=== PATIENT | female | born 1975 | race Caucasian/White ===

== ENCOUNTER 2017-12-05 20:46 | Inpatient (IN) | payer MEDICARE, MEDICAID ==
[~2017-12-05] VITALS: Ht 162.6 cm; Wt 75.5 kg
[2017-12-05] MEDS ORDERED: PANTOPRAZOLE 40 MG/10 ML VIAL IV ONE (21:00)
[2017-12-05] MEDS ORDERED: PHYTONADIONE (VIT K)10 MG/ML 1ML VIAL SUBCUT ONE (21:15)
[2017-12-05 21:31] LABS: Basophils # (auto) 0.1 uL; Basophils % (auto) 0.9 % (0.0-2.0); Eosinophils # (auto) 0.2 uL; Monocytes # (auto) 0.4 uL; Neutrophils # (auto) 4.8 uL
[2017-12-05 21:34] LABS: Eosinophils % (auto) 2.3 % (0.0-7.0); Lymphocytes % (auto) 33.3 % (10.0-50.0); Monocytes % (auto) 4.7 % (0.0-12.0); Neutrophils % (auto) 58.8 % (37.0-80.0); White Blood Cell 8.2 10^3/uL (4.4-10.8)
[2017-12-05 21:35] LABS: Hematocrit 12.1 % (36.0-46.0); Lymphocytes # (auto) 2.7 uL; Nucleated Red Blood Cells % 0.3 %; Red Blood Cells 1.31 10^6/uL (4.0-5.20)
[2017-12-05 21:36] LABS: Mean Corpuscular Hemoglobin 31.1 pg (28.0-32.0); Mean Corpuscular Hgb Conc. 33.4 g/dL (32.0-36.0); Platelet Count (auto) 115 10^3/uL (140-450); Red Cell Distribution Width 15.3 % (11.8-14.3)
[2017-12-05 21:37] LABS: Hemoglobin 4.1 g/dL (12.2-16.2)
[2017-12-05 21:40] LABS: Albumin 1.3 g/dL (3.4-5.0); BUN/Creatinine Ratio 7.1; Bilirubin, Total 0.3 mg/dL (0.2-1.0); Calcium 6.1 mg/dL (8.5-10.1); Total Protein 3.4 g/dL (6.4-8.2)
[2017-12-05] MEDS ORDERED: PANTOPRAZOLE 80 MG in SODIUM CHL 0.9% 60 ML IV ONE (22:00)
[2017-12-05 22:09] LABS: Potassium 5.8 mmol/L (3.5-5.1)
[2017-12-05] MEDS ORDERED: MEPERIDINE HCL (50 MG/ML) 1 ML VIAL IV ONE (22:15)
[2017-12-05 22:55] VITALS: BP 80/50
[2017-12-05 23:11] VITALS: BP 81/45
[2017-12-05 23:19] VITALS: BP 78/44
[2017-12-05] MEDS ORDERED: FUROSEMIDE 20 MG/2 ML VIAL ONE (23:32)
[2017-12-05 23:40] VITALS: BP 79/47
[2017-12-05] MEDS ORDERED: FUROSEMIDE 20 MG/2 ML VIAL IV ONE (23:45)
[2017-12-05 23:55] VITALS: BP 94/48
[2017-12-06] VITALS (56 sets, daily range): BP systolic 53–169; BP diastolic 32–94
[2017-12-06] MEDS ORDERED: NOREPINEPHRINE 8 MG/250ML KIT 250 ML IV ONE (00:12)
[2017-12-06] MEDS: NOREPINEPHRINE 8 MG/250ML KIT 250 ML IV SCH ×2 (00:15→20:37)
[2017-12-06] MEDS ORDERED: OCTREOTIDE ACETATE 100 MCG/ML VL ONE (00:27)
[2017-12-06] MEDS ORDERED: OCTREOTIDE ACETATE 500 MCG/ML VL ONE (00:30)
[2017-12-06] MEDS ORDERED: PHYTONADIONE (VIT K)10 MG/ML 1ML VIAL SUBCUT ONE (00:30)
[2017-12-06] MEDS ORDERED: OCTREOTIDE ACETATE 100 MCG in SODIUM CHL 0.9% 50 ML IV ONE (00:30)
[2017-12-06] MEDS: OCTREOTIDE ACETATE 500 MCG in SODIUM CHL 0.9% 99 ML IV SCH ×2 (00:30→10:32)
[2017-12-06] MEDS ORDERED: CALCIUM GLUC 4.65meq/50ml D5AE 50 ML IV ONE ×3 (01:00→03:15)
[2017-12-06] MEDS ORDERED: CALCIUM CHL 100MG/ML 1,000 MG in D5W 5% 100 ML IV ONE (01:00)
[2017-12-06] MEDS ORDERED: SODIUM BICARBONATE 8.4 % INJ 50ML VIAL IV ONE ×2 (01:00→03:15)
[2017-12-06] MEDS ORDERED: ONDANSETRON HCL 4 MG/2 ML VIAL IV ONE (01:15)
[2017-12-06] MEDS ORDERED: MEPERIDINE HCL (50 MG/ML) 1 ML VIAL IV ONE (01:15)
[2017-12-06 01:16] LABS: INR 1.27 (0.9-1.15); Partial Thromboplastin Time 31.5 sec (23.78-33.04); Prothrombin Time 13.4 sec (9.27-12.13)
[2017-12-06] MEDS: SODIUM CHLORIDE 0.9% 1,000 ML IV SCH ×2 (02:15→18:55)
[2017-12-06] MEDS ORDERED: MORPHINE SULF INJ 2 MG/ML SYRINGE 1ML IV PRN (02:15)
[2017-12-06] MEDS ORDERED: NITROGLYCERIN 0.4 MG SL TAB SL PRN (02:15)
[2017-12-06] MEDS: PANTOPRAZOLE 80 MG in SODIUM CHL 0.9% 60 ML IV SCH ×3 (02:15→22:54)
[2017-12-06] MEDS ORDERED: SODIUM POLYSTYRENE SULF 15GM/60ML SUSP PO ONE (03:15)
[2017-12-06] MEDS ORDERED: DEXTROSE (50%) 50ML SYRG IV ONE (03:15)
[2017-12-06] MEDS ORDERED: FUROSEMIDE 40 MG/4 ML VIAL IV ONE (03:15)
[2017-12-06] MEDS ORDERED: InsuLIN REG 1unit/0.01ml Soln (100units/ml) IV ONE (03:15)
[2017-12-06] MEDS ORDERED: FUROSEMIDE 40 MG/4 ML VIAL ONE (03:49)
[2017-12-06 04:22] LABS: Urine Bacteria NONE SEEN /hpf (None Seen); Urine Blood TRACE /uL (Negative); Urine Specific Gravity 1.008 (1.001-1.035); Urine WBC 1 /hpf (0 - 5)
[2017-12-06 04:35] LABS: Hematocrit 19.6 % (36.0-46.0)
[2017-12-06 04:37] LABS: Hemoglobin 6.7 g/dL (12.2-16.2)
[2017-12-06] MEDS ORDERED: ETOMIDATE (2MG/ML) 20ML VIAL IV ONE ×3 (04:45→06:30)
[2017-12-06] MEDS ORDERED: SUCCINYLCHOLINE CHLORIDE 20 MG/ML 10ML VIAL IV ONE ×3 (04:45→06:30)
[2017-12-06] MEDS: VASOPRESSIN 50 UNITS in D5W 5% 247.5 ML IV SCH (04:45)
[2017-12-06] MEDS ORDERED: VASOPRESSIN 20 UNIT/ML ONE ×3 (04:50→05:08)
[2017-12-06] MEDS: MIDAZOLAM DRIP 50 mg/50mL 50 ML IV SCH ×2 (05:00→22:17)
[2017-12-06] MEDS ORDERED: MIDAZOLAM DRIP 50 mg/50mL 50 ML IV ONE (05:01)
[2017-12-06 05:05] LABS: INR 1.33 (0.9-1.15); Partial Thromboplastin Time 27.5 sec (23.78-33.04)
[2017-12-06] MEDS ORDERED: PHENYLEPHRINE HCL 10 MG/ML VL ONE (05:42)
[2017-12-06] MEDS: ACCU-CHEK COMFORT CURVE STRIP VI SCH ×3 (06:00→18:50)
[2017-12-06] MEDS: InsuLIN REG 1unit/0.01ml Soln (100units/ml) SC SCH ×3 (06:00→18:30)
[2017-12-06] MEDS ORDERED: MIDAZOLAM HCL 5 MG/ML-1ML VIAL ONE ×2 (06:23→13:48)
[2017-12-06] MEDS ORDERED: SODIUM CHLORIDE LOCK 0 ML ONE (06:23)
[2017-12-06] MEDS ORDERED: FLUMAZENIL 0.1 MG/ML INJ 10ML MDV IV ONE (06:23)
[2017-12-06] MEDS ORDERED: LIDOCAINE VISCOUS 2% 15ML UD ONE (06:23)
[2017-12-06] MEDS ORDERED: NALOXONE HCL 0.4 MG/ML VIAL ONE (06:23)
[2017-12-06] MEDS ORDERED: fentaNYL CITRATE 100 MCG/2 ML VL ONE ×2 (06:24→13:49)
[2017-12-06] MEDS ORDERED: diphenhdrAMINE HCL 50 MG/1 ML VL ONE ×2 (06:27→13:49)
[2017-12-06] MEDS: PHENYLEPHRINE INJ 20 MG in D5W 5% 250 ML IV SCH ×3 (06:30→23:10)
[2017-12-06] MEDS ORDERED: fentaNYL CITRATE 100 MCG/2 ML VL IV ONE (06:40)
[2017-12-06] MEDS ORDERED: PROPOFOL 0 ML IV ONE (06:42)
[2017-12-06] MEDS: METOCLOPRAMIDE HCL 5MG/ml INJ 2ml VIAL IV SCH ×3 (06:48→22:00)
[2017-12-06] MEDS ORDERED: PROPOFOL 10 MG/ML 20 ML IV ONE (07:00)
[2017-12-06] MEDS ORDERED: fentaNYL Drip 2500mCg/250mlNS 250 ML IV ONE (07:57)
[2017-12-06] MEDS: fentaNYL Drip 2500mCg/250mlNS 250 ML IV SCH (08:00)
[2017-12-06 09:29] LABS: Basophils # (auto) 0 uL; Basophils % (auto) 0.2 % (0.0-2.0); Eosinophils # (auto) 0 uL; Eosinophils % (auto) 0.1 % (0.0-7.0); Monocytes # (auto) 1.4 uL; Platelet Count (auto) 56 10^3/uL (140-450); White Blood Cell 24.3 10^3/uL (4.4-10.8)
[2017-12-06 09:31] LABS: Hematocrit 45.5 % (36.0-46.0); Lymphocytes # (auto) 3.1 uL; Lymphocytes % (auto) 12.7 % (10.0-50.0); Mean Corpuscular Hemoglobin 29.4 pg (28.0-32.0); Mean Corpuscular Hgb Conc. 32.9 g/dL (32.0-36.0); Mean Corpuscular Volume 89.2 fL (80.0-100.0); Monocytes % (auto) 5.7 % (0.0-12.0); Neutrophils # (auto) 19.7 uL; Neutrophils % (auto) 81.3 % (37.0-80.0); Red Cell Distribution Width 14.1 % (11.8-14.3)
[2017-12-06 09:46] LABS: INR 1.31 (0.9-1.15); Partial Thromboplastin Time 29.4 sec (23.78-33.04); Prothrombin Time 13.8 sec (9.27-12.13)
[2017-12-06] MEDS ORDERED: ERYTHROMYCIN LACTOBIONATE 250 MG in SODIUM CHL 0.9% 100 ML IV ONE (10:30)
[2017-12-06] MEDS: DEXTROSE (50%) 50ML SYRG IV PRN (12:21)
[2017-12-06] MEDS ORDERED: DEXTROSE 10% 1,000 ML IV ONE (13:15)
[2017-12-06 13:17] LABS: Hemoglobin 13.4 g/dL (12.2-16.2)
[2017-12-06 13:18] LABS: Hematocrit 40.7 % (36.0-46.0)
[2017-12-06] MEDS ORDERED: EPINEPHrine HCL 1 MG/10 ML SYRG ONE (13:48)
[2017-12-06] MEDS ORDERED: SODIUM CHL 0.9% 1000 ML BAG XX ONE (18:15)
[2017-12-06] MEDS ORDERED: EPOETIN ALFA 3,000 UNIT/1 ML VIAL IV ONE (19:00)
[2017-12-06] MEDS ORDERED: EPOETIN ALFA 2,000 UNIT/1 ML VIAL IV ONE (19:00)
[2017-12-06 19:57] LABS: Basophils # (auto) 0.1 uL; Basophils % (auto) 0.7 % (0.0-2.0); Eosinophils # (auto) 0.2 uL; Eosinophils % (auto) 1.1 % (0.0-7.0); Hematocrit 36.8 % (36.0-46.0); Hemoglobin 12.5 g/dL (12.2-16.2); Lymphocytes # (auto) 4.4 uL; Lymphocytes % (auto) 23.2 % (10.0-50.0); Mean Corpuscular Hemoglobin 30.3 pg (28.0-32.0); Mean Corpuscular Hgb Conc. 33.9 g/dL (32.0-36.0); Mean Corpuscular Volume 89.5 fL (80.0-100.0); Monocytes # (auto) 1.3 uL; Neutrophils # (auto) 12.8 uL; Nucleated Red Blood Cells % 0.2 %; Platelet Count (auto) 75 10^3/uL (140-450); Red Blood Cells 4.11 10^6/uL (4.0-5.20); Red Cell Distribution Width 14.2 % (11.8-14.3); White Blood Cell 18.9 10^3/uL (4.4-10.8)
[2017-12-06 20:38] LABS: Albumin 1.3 g/dL (3.4-5.0); BUN/Creatinine Ratio 8.5; Bilirubin, Total 0.7 mg/dL (0.2-1.0); Calcium 6.2 mg/dL (8.5-10.1); Potassium 5.1 mmol/L (3.5-5.1); Total Protein 3.3 g/dL (6.4-8.2)
[2017-12-06] MEDS ORDERED: PHENYLEPHRINE IV 250 ML IV ONE (20:49)
[2017-12-07] VITALS (108 sets, daily range): BP systolic 72–142; BP diastolic 30–116
[2017-12-07] MEDS: SODIUM CHLORIDE 0.9% 1,000 ML IV SCH (00:33)
[2017-12-07] MEDS: diphenhdrAMINE HCL 50 MG/1 ML VL IV PRN ×3 (01:41→20:56)
[2017-12-07] MEDS: fentaNYL Drip 2500mCg/250mlNS 250 ML IV SCH (03:08)
[2017-12-07] MEDS: MIDAZOLAM DRIP 50 mg/50mL 50 ML IV SCH ×3 (03:09→20:55)
[2017-12-07 03:44] LABS: Basophils # (auto) 0 uL; Basophils % (auto) 0.3 % (0.0-2.0); Eosinophils # (auto) 0.4 uL; Eosinophils % (auto) 2.6 % (0.0-7.0); Hematocrit 27.4 % (36.0-46.0); Hemoglobin 9.3 g/dL (12.2-16.2); Lymphocytes % (auto) 19.7 % (10.0-50.0); Mean Corpuscular Hemoglobin 30.4 pg (28.0-32.0); Mean Corpuscular Hgb Conc. 34.1 g/dL (32.0-36.0); Mean Corpuscular Volume 89.2 fL (80.0-100.0); Monocytes # (auto) 1.1 uL; Monocytes % (auto) 7.5 % (0.0-12.0); Neutrophils # (auto) 10.6 uL; Neutrophils % (auto) 69.9 % (37.0-80.0); Nucleated Red Blood Cells % 0.1 %; Platelet Count (auto) 89 10^3/uL (140-450); Red Blood Cells 3.07 10^6/uL (4.0-5.20); Red Cell Distribution Width 14.2 % (11.8-14.3); White Blood Cell 15.2 10^3/uL (4.4-10.8)
[2017-12-07 03:59] LABS: Potassium 3.8 mmol/L (3.5-5.1)
[2017-12-07 04:04] LABS: Albumin 1.7 g/dL (3.4-5.0); Calcium 6.1 mg/dL (8.5-10.1)
[2017-12-07 04:19] LABS: Bilirubin, Total 0.7 mg/dL (0.2-1.0)
[2017-12-07 04:25] LABS: INR 1.07 (0.9-1.15); Prothrombin Time 11.4 sec (9.27-12.13)
[2017-12-07] MEDS: VASOPRESSIN 50 UNITS in D5W 5% 247.5 ML IV SCH (04:45)
[2017-12-07 05:25] LABS: BUN/Creatinine Ratio 6.6
[2017-12-07] MEDS: METOCLOPRAMIDE HCL 5MG/ml INJ 2ml VIAL IV SCH ×3 (05:41→22:00)
[2017-12-07] MEDS: InsuLIN REG 1unit/0.01ml Soln (100units/ml) SC SCH ×5 (06:00→23:44)
[2017-12-07] MEDS: ACCU-CHEK COMFORT CURVE STRIP VI SCH ×5 (06:05→23:44)
[2017-12-07] MEDS ORDERED: CLIN1CAP3 PO (06:18)
[2017-12-07] MEDS ORDERED: OXY5T PO (06:18)
[2017-12-07] MEDS ORDERED: GABA600T PO (06:18)
[2017-12-07] MEDS ORDERED: DIAZ5TAB3 PO (06:18)
[2017-12-07] MEDS: PHENYLEPHRINE INJ 20 MG in D5W 5% 250 ML IV SCH ×2 (07:30→15:50)
[2017-12-07] MEDS: PANTOPRAZOLE 80 MG in SODIUM CHL 0.9% 60 ML IV SCH ×2 (08:15→20:55)
[2017-12-07] MEDS ORDERED: GENTAMICIN SULF 80 MG/2 ML VIAL IV ONE (12:30)
[2017-12-07 13:21] LABS: Urine Bacteria FEW /hpf (None Seen); Urine Blood 2+ /uL (Negative); Urine Specific Gravity 1.003 (1.001-1.035); Urine WBC 18 /hpf (0 - 5)
[2017-12-07 22:18] LABS: Hemoglobin 8.3 g/dL (12.2-16.2)
[2017-12-07] MEDS: DEXTROSE (50%) 50ML SYRG IV PRN (23:45)
[2017-12-08] VITALS (114 sets, daily range): BP systolic 90–154; BP diastolic 45–98
[2017-12-08] MEDS: PHENYLEPHRINE INJ 20 MG in D5W 5% 250 ML IV SCH ×3 (00:10→16:50)
[2017-12-08] MEDS: SODIUM CHLORIDE 0.9% 1,000 ML IV SCH (01:34)
[2017-12-08] MEDS: PANTOPRAZOLE 80 MG in SODIUM CHL 0.9% 60 ML IV SCH ×3 (04:15→21:25)
[2017-12-08 04:29] LABS: Basophils # (auto) 0.1 uL; Basophils % (auto) 0.7 % (0.0-2.0); Eosinophils # (auto) 0.4 uL; Eosinophils % (auto) 5.1 % (0.0-7.0); Hematocrit 28.2 % (36.0-46.0); Hemoglobin 9.5 g/dL (12.2-16.2); Lymphocytes # (auto) 1.5 uL; Lymphocytes % (auto) 19.1 % (10.0-50.0); Mean Corpuscular Hgb Conc. 33.6 g/dL (32.0-36.0); Mean Corpuscular Volume 89.2 fL (80.0-100.0); Monocytes # (auto) 0.5 uL; Monocytes % (auto) 6.8 % (0.0-12.0); Neutrophils # (auto) 5.3 uL; Neutrophils % (auto) 68.3 % (37.0-80.0); Platelet Count (auto) 66 10^3/uL (140-450); Red Blood Cells 3.16 10^6/uL (4.0-5.20); Red Cell Distribution Width 13.7 % (11.8-14.3); White Blood Cell 7.8 10^3/uL (4.4-10.8)
[2017-12-08 04:43] LABS: Albumin 1.5 g/dL (3.4-5.0); Calcium 6.3 mg/dL (8.5-10.1)
[2017-12-08 04:45] LABS: Bilirubin, Total 0.6 mg/dL (0.2-1.0)
[2017-12-08] MEDS: VASOPRESSIN 50 UNITS in D5W 5% 247.5 ML IV SCH (04:45)
[2017-12-08 04:54] LABS: INR 1.08 (0.9-1.15); Partial Thromboplastin Time 30.7 sec (23.78-33.04); Prothrombin Time 11.5 sec (9.27-12.13)
[2017-12-08] MEDS: MIDAZOLAM DRIP 50 mg/50mL 50 ML IV SCH (04:58)
[2017-12-08] MEDS: METOCLOPRAMIDE HCL 5MG/ml INJ 2ml VIAL IV SCH ×2 (06:00→14:00)
[2017-12-08] MEDS: InsuLIN REG 1unit/0.01ml Soln (100units/ml) SC SCH ×3 (06:00→18:00)
[2017-12-08] MEDS: ACCU-CHEK COMFORT CURVE STRIP VI SCH ×3 (06:25→18:00)
[2017-12-08] MEDS: DEXTROSE (50%) 50ML SYRG IV PRN (06:25)
[2017-12-08] MEDS: NOREPINEPHRINE 8 MG/250ML KIT 250 ML IV SCH (06:26)
[2017-12-08] MEDS: fentaNYL Drip 2500mCg/250mlNS 250 ML IV SCH (08:24)
[2017-12-08] MEDS: SUCRALFATE 1 GM/10 ML ORAL SUSP PO SCH ×2 (17:00→22:00)
[2017-12-08] MEDS ORDERED: PPN PER PHARMACY 0 ML IV SCH (19:00)
[2017-12-08] MEDS ORDERED: CALCIUM GLUC 4.65meq/50ml D5AE 50 ML IV ONE (19:30)
[2017-12-08] MEDS ORDERED: AMINO ACID INFUSION IN D10W 1,000 ML IV ONE (20:00)
[2017-12-09] VITALS (90 sets, daily range): BP systolic 94–162; BP diastolic 45–94
[2017-12-09] MEDS: PHENYLEPHRINE INJ 20 MG in D5W 5% 250 ML IV SCH ×2 (01:10→09:30)
[2017-12-09 03:55] LABS: Basophils # (auto) 0 uL; Basophils % (auto) 0.5 % (0.0-2.0); Eosinophils # (auto) 0.4 uL; Eosinophils % (auto) 3.8 % (0.0-7.0); Hematocrit 29.1 % (36.0-46.0); Hemoglobin 9.8 g/dL (12.2-16.2); Lymphocytes # (auto) 1.1 uL; Lymphocytes % (auto) 11.3 % (10.0-50.0); Mean Corpuscular Hemoglobin 30.3 pg (28.0-32.0); Mean Corpuscular Hgb Conc. 33.7 g/dL (32.0-36.0); Mean Corpuscular Volume 89.7 fL (80.0-100.0); Monocytes # (auto) 0.5 uL; Monocytes % (auto) 4.8 % (0.0-12.0); Neutrophils # (auto) 8.1 uL; Neutrophils % (auto) 79.6 % (37.0-80.0); Platelet Count (auto) 72 10^3/uL (140-450); Red Blood Cells 3.25 10^6/uL (4.0-5.20); Red Cell Distribution Width 13.8 % (11.8-14.3); White Blood Cell 10.2 10^3/uL (4.4-10.8)
[2017-12-09 04:21] LABS: Albumin 1.6 g/dL (3.4-5.0); Bilirubin, Total 0.6 mg/dL (0.2-1.0); Calcium 6.8 mg/dL (8.5-10.1); Magnesium 2.2 mg/dL (1.6-2.6); Phosphorus 6.4 mg/dL (2.5-4.90); Potassium 4.2 mmol/L (3.5-5.1); Total Protein 4.3 g/dL (6.4-8.2)
[2017-12-09] MEDS: VASOPRESSIN 50 UNITS in D5W 5% 247.5 ML IV SCH (04:45)
[2017-12-09] MEDS: ACCU-CHEK COMFORT CURVE STRIP VI SCH ×4 (06:00→17:49)
[2017-12-09] MEDS ORDERED: EPOETIN ALFA 10,000 UNIT/1 ML VIAL IV SCH (06:00)
[2017-12-09] MEDS: InsuLIN REG 1unit/0.01ml Soln (100units/ml) SC SCH ×4 (06:00→17:49)
[2017-12-09] MEDS: NOREPINEPHRINE 8 MG/250ML KIT 250 ML IV SCH (06:30)
[2017-12-09] MEDS: SUCRALFATE 1 GM/10 ML ORAL SUSP PO SCH ×4 (07:00→22:00)
[2017-12-09] MEDS: PANTOPRAZOLE 80 MG in SODIUM CHL 0.9% 60 ML IV SCH (08:00)
[2017-12-09] MEDS: diphenhdrAMINE HCL 50 MG/1 ML VL IV PRN ×2 (14:31→22:30)
[2017-12-09] MEDS ORDERED: diphenhdrAMINE HCL 50 MG/1 ML VL IV ONE (15:15)
[2017-12-09] MEDS ORDERED: EPOETIN ALFA 10,000 UNIT/1 ML VIAL IV ONE (15:30)
[2017-12-09] MEDS ORDERED: PPN PER PHARMACY IV NR ×7 (20:00)
[2017-12-09] MEDS ORDERED: PANTOPRAZOLE 40 MG/10 ML VIAL IV SCH (22:00)
[2017-12-10] VITALS (20 sets, daily range): BP systolic 105–154; BP diastolic 49–80
[2017-12-10 03:46] LABS: Basophils # (auto) 0.1 uL; Basophils % (auto) 0.9 % (0.0-2.0); Eosinophils # (auto) 0.4 uL; Eosinophils % (auto) 4.2 % (0.0-7.0); Hematocrit 27.5 % (36.0-46.0); Hemoglobin 9.4 g/dL (12.2-16.2); Lymphocytes # (auto) 1.3 uL; Lymphocytes % (auto) 15.5 % (10.0-50.0); Mean Corpuscular Hemoglobin 30.6 pg (28.0-32.0); Mean Corpuscular Hgb Conc. 34.1 g/dL (32.0-36.0); Monocytes # (auto) 0.4 uL; Monocytes % (auto) 4.8 % (0.0-12.0); Neutrophils # (auto) 6.3 uL; Neutrophils % (auto) 74.6 % (37.0-80.0); Platelet Count (auto) 81 10^3/uL (140-450); Red Blood Cells 3.06 10^6/uL (4.0-5.20); White Blood Cell 8.5 10^3/uL (4.4-10.8)
[2017-12-10 04:46] LABS: BUN/Creatinine Ratio 5.1; Calcium 6.4 mg/dL (8.5-10.1); Potassium 4.1 mmol/L (3.5-5.1)
[2017-12-10] MEDS: ACCU-CHEK COMFORT CURVE STRIP VI SCH ×5 (06:00→23:21)
[2017-12-10] MEDS: InsuLIN REG 1unit/0.01ml Soln (100units/ml) SC SCH ×5 (06:00→23:21)
[2017-12-10] MEDS: SUCRALFATE 1 GM/10 ML ORAL SUSP PO SCH ×4 (06:40→21:02)
[2017-12-10] MEDS ORDERED: PANTOPRAZOLE 40 MG/10 ML VIAL IV SCH (10:00)
[2017-12-10] MEDS ORDERED: LINEZOLID 600MG/300ML 300 ML IV ONE (12:00)
[2017-12-10] MEDS ORDERED: DAPTOmycin 500 MG in SODIUM CHL 0.9% 50 ML IV SCH (13:00)
[2017-12-10] MEDS: PANTOPRAZOLE 40 MG TAB PO SCH (21:02)
[2017-12-10] MEDS: diphenhdrAMINE HCL 50 MG/1 ML VL IV PRN (21:02)
[2017-12-10] MEDS ORDERED: LINEZOLID 600MG/300ML 300 ML IV SCH (22:00)
[2017-12-11] VITALS (7 sets, daily range): BP systolic 136–156; BP diastolic 68–75
[2017-12-11 05:46] LABS: Basophils # (auto) 0.1 uL; Eosinophils # (auto) 0.4 uL; Eosinophils % (auto) 6.5 % (0.0-7.0); Hematocrit 27.7 % (36.0-46.0); Hemoglobin 9.5 g/dL (12.2-16.2); Lymphocytes # (auto) 1.4 uL; Lymphocytes % (auto) 22.1 % (10.0-50.0); Mean Corpuscular Hemoglobin 31.3 pg (28.0-32.0); Mean Corpuscular Hgb Conc. 34.4 g/dL (32.0-36.0); Mean Corpuscular Volume 91.2 fL (80.0-100.0); Monocytes # (auto) 0.4 uL; Monocytes % (auto) 7.2 % (0.0-12.0); Neutrophils # (auto) 3.9 uL; Neutrophils % (auto) 63.2 % (37.0-80.0); Nucleated Red Blood Cells % 0.1 %; Platelet Count (auto) 90 10^3/uL (140-450); Red Blood Cells 3.04 10^6/uL (4.0-5.20); White Blood Cell 6.1 10^3/uL (4.4-10.8)
[2017-12-11 05:57] LABS: BUN/Creatinine Ratio 4.3; Calcium 6.7 mg/dL (8.5-10.1); Potassium 4.5 mmol/L (3.5-5.1)
[2017-12-11] MEDS: InsuLIN REG 1unit/0.01ml Soln (100units/ml) SC SCH ×4 (06:00→23:25)
[2017-12-11] MEDS: ACCU-CHEK COMFORT CURVE STRIP VI SCH ×4 (06:14→23:25)
[2017-12-11] MEDS: SUCRALFATE 1 GM/10 ML ORAL SUSP PO SCH ×4 (06:17→22:17)
[2017-12-11] MEDS ORDERED: diphenhdrAMINE HCL 50 MG/1 ML VL IV ONE (07:45)
[2017-12-11] MEDS ORDERED: EPOETIN ALFA 10,000 UNIT/1 ML VIAL IV ONE (07:45)
[2017-12-11] MEDS: PANTOPRAZOLE 40 MG TAB PO SCH ×2 (11:18→22:18)
[2017-12-11] MEDS: LINEZOLID 600MG TABLET PO SCH ×2 (12:32→23:10)
[2017-12-11] MEDS: diphenhdrAMINE HCL 50 MG/1 ML VL IV PRN ×2 (14:10→19:49)
[2017-12-11] MEDS ORDERED: DIAZEPAM 5 MG TAB PO PRN (17:45)
[2017-12-11] MEDS ORDERED: oxyCODONE ER 10 MG TAB PO SCH (18:00)
[2017-12-11] MEDS ORDERED: GABAPENTIN 300 MG CAP PO SCH (22:00)
[2017-12-11] MEDS: GABAPENTIN 300 MG CAP PO SCH (22:18)
[2017-12-12] VITALS (40 sets, daily range): BP systolic 78–161; BP diastolic 31–106
[2017-12-12] MEDS: diphenhdrAMINE HCL 50 MG/1 ML VL IV PRN ×2 (01:42→08:06)
[2017-12-12] MEDS: oxyCODONE ER 10 MG TAB PO PRN ×2 (02:14→08:06)
[2017-12-12] MEDS: ACCU-CHEK COMFORT CURVE STRIP VI SCH ×3 (05:36→17:55)
[2017-12-12] MEDS: InsuLIN REG 1unit/0.01ml Soln (100units/ml) SC SCH ×3 (05:37→17:55)
[2017-12-12 05:54] LABS: Basophils # (auto) 0.1 uL; Basophils % (auto) 1.1 % (0.0-2.0); Eosinophils # (auto) 0.3 uL; Eosinophils % (auto) 6.3 % (0.0-7.0); Hematocrit 27.7 % (36.0-46.0); Hemoglobin 9.6 g/dL (12.2-16.2); Lymphocytes # (auto) 1.5 uL; Mean Corpuscular Hemoglobin 31.5 pg (28.0-32.0); Mean Corpuscular Hgb Conc. 34.7 g/dL (32.0-36.0); Mean Corpuscular Volume 90.7 fL (80.0-100.0); Monocytes # (auto) 0.5 uL; Monocytes % (auto) 9.1 % (0.0-12.0); Neutrophils # (auto) 2.9 uL; Neutrophils % (auto) 55.5 % (37.0-80.0); Nucleated Red Blood Cells % 0.1 %; Platelet Count (auto) 101 10^3/uL (140-450); Red Blood Cells 3.06 10^6/uL (4.0-5.20); Red Cell Distribution Width 13.9 % (11.8-14.3); White Blood Cell 5.3 10^3/uL (4.4-10.8)
[2017-12-12 06:06] LABS: Calcium 6.8 mg/dL (8.5-10.1); Potassium 4.1 mmol/L (3.5-5.1)
[2017-12-12] MEDS: SUCRALFATE 1 GM/10 ML ORAL SUSP PO SCH ×4 (06:46→22:00)
[2017-12-12 09:24] LABS: Basophils # (auto) 0.1 uL; Eosinophils # (auto) 0.4 uL; Hemoglobin 7.1 g/dL (12.2-16.2); Lymphocytes % (auto) 24.2 % (10.0-50.0)
[2017-12-12 09:25] LABS: Basophils % (auto) 1.1 % (0.0-2.0); Eosinophils % (auto) 5.2 % (0.0-7.0); Hematocrit 20.6 % (36.0-46.0); Lymphocytes # (auto) 1.7 uL; Mean Corpuscular Hemoglobin 31.3 pg (28.0-32.0); Mean Corpuscular Hgb Conc. 34.4 g/dL (32.0-36.0); Mean Corpuscular Volume 90.9 fL (80.0-100.0); Monocytes # (auto) 0.5 uL; Monocytes % (auto) 7.5 % (0.0-12.0); Neutrophils # (auto) 4.4 uL; Nucleated Red Blood Cells % 0.2 %; Platelet Count (auto) 153 10^3/uL (140-450); Red Blood Cells 2.27 10^6/uL (4.0-5.20); White Blood Cell 7.1 10^3/uL (4.4-10.8)
[2017-12-12] MEDS: LINEZOLID 600MG TABLET PO SCH ×2 (10:00→22:00)
[2017-12-12] MEDS: PANTOPRAZOLE 40 MG TAB PO SCH (10:00)
[2017-12-12] MEDS ORDERED: NOREPINEPHRINE 8 MG/250ML KIT 250 ML IV ONE (10:09)
[2017-12-12] MEDS: NOREPINEPHRINE 8 MG/250ML KIT 250 ML IV SCH (10:30)
[2017-12-12] MEDS ORDERED: METOCLOPRAMIDE HCL 5MG/ml INJ 2ml VIAL IV ONE (10:40)
[2017-12-12] MEDS ORDERED: METOCLOPRAMIDE HCL 5MG/ml INJ 2ml VIAL ONE (10:42)
[2017-12-12] MEDS ORDERED: PROPOFOL 10 MG/ML 20 ML IV ONE (12:41)
[2017-12-12] MEDS ORDERED: ePHEDrine SULFATE 50 MG/ML AMP ONE (12:41)
[2017-12-12] MEDS ORDERED: PHENYLEPHRINE HCL 10 MG/ML VL ONE (12:41)
[2017-12-12] MEDS ORDERED: fentaNYL CITRATE 100 MCG/2 ML VL ONE (12:41)
[2017-12-12] MEDS ORDERED: SUCCINYLCHOLINE CHLORIDE 20 MG/ML 10ML VIAL IV ONE (12:49)
[2017-12-12] MEDS ORDERED: ERYTHROMYCIN LACTOBIONATE 250 MG in SODIUM CHL 0.9% 100 ML IV ONE (13:15)
[2017-12-12] MEDS ORDERED: MIDAZOLAM DRIP 50 mg/50mL 50 ML IV ONE (13:34)
[2017-12-12] MEDS: MIDAZOLAM DRIP 50 mg/50mL 50 ML IV SCH (13:35)
[2017-12-12] MEDS ORDERED: GABAPENTIN 300 MG CAP PO PRN (15:00)
[2017-12-12] MEDS: ONDANSETRON HCL 4 MG/2 ML VIAL IV PRN (15:54)
[2017-12-12] MEDS ORDERED: EPINEPHrine HCL 1 MG/10 ML SYRG ONE (16:11)
[2017-12-12] MEDS ORDERED: SODIUM CHLORIDE LOCK 0 ML ONE (16:12)
[2017-12-12] MEDS ORDERED: PROPOFOL 100 ML IV ONE (16:13)
[2017-12-12 21:16] LABS: Basophils # (auto) 0 uL; Basophils % (auto) 0.3 % (0.0-2.0); Eosinophils # (auto) 0.1 uL; Eosinophils % (auto) 0.4 % (0.0-7.0); Hematocrit 28.5 % (36.0-46.0); Hemoglobin 9.6 g/dL (12.2-16.2); Lymphocytes # (auto) 1.5 uL; Lymphocytes % (auto) 10.3 % (10.0-50.0); Mean Corpuscular Hemoglobin 29.9 pg (28.0-32.0); Mean Corpuscular Hgb Conc. 33.5 g/dL (32.0-36.0); Mean Corpuscular Volume 89.2 fL (80.0-100.0); Monocytes # (auto) 0.7 uL; Neutrophils # (auto) 12.5 uL; Nucleated Red Blood Cells % 0.2 %; Platelet Count (auto) 127 10^3/uL (140-450); Red Cell Distribution Width 14.7 % (11.8-14.3); White Blood Cell 14.8 10^3/uL (4.4-10.8)
[2017-12-12] MEDS: GABAPENTIN 300 MG CAP PO SCH (22:00)
[2017-12-12] MEDS: PANTOPRAZOLE 40 MG/10 ML VIAL IV SCH (22:00)
[2017-12-13] VITALS (97 sets, daily range): BP systolic 88–148; BP diastolic 43–86
[2017-12-13] MEDS: InsuLIN REG 1unit/0.01ml Soln (100units/ml) SC SCH ×5 (01:30→23:22)
[2017-12-13] MEDS: ACCU-CHEK COMFORT CURVE STRIP VI SCH ×5 (01:30→23:22)
[2017-12-13 03:49] LABS: Basophils # (auto) 0.1 uL; Eosinophils # (auto) 0.2 uL; Eosinophils % (auto) 1.5 % (0.0-7.0); Monocytes # (auto) 0.5 uL; Nucleated Red Blood Cells % 0.1 %
[2017-12-13 03:51] LABS: Basophils % (auto) 0.8 % (0.0-2.0); Hematocrit 23.6 % (36.0-46.0); Hemoglobin 8.1 g/dL (12.2-16.2); Lymphocytes # (auto) 1.9 uL; Mean Corpuscular Hemoglobin 30.6 pg (28.0-32.0); Mean Corpuscular Hgb Conc. 34.4 g/dL (32.0-36.0); Monocytes % (auto) 4.7 % (0.0-12.0); Neutrophils # (auto) 8.3 uL; Platelet Count (auto) 110 10^3/uL (140-450); Red Blood Cells 2.65 10^6/uL (4.0-5.20); White Blood Cell 10.9 10^3/uL (4.4-10.8)
[2017-12-13 05:14] LABS: Anion Gap 10 (5-15); BUN/Creatinine Ratio 3.5; Blood Urea Nitrogen 16 mg/dL (7-18); Carbon Dioxide 21 mmol/L (21-32); Chloride 109 mmol/L (98-107); GFR African American 14 mL/min; GFR Non-African American 11 mL/min; Glucose 98 mg/dL (74-106); Potassium 5.4 mmol/L (3.5-5.1); Sodium 140 mmol/L (136-145)
[2017-12-13 05:17] LABS: Calcium 5.9 mg/dL (8.5-10.1)
[2017-12-13] MEDS ORDERED: CALCIUM GLUC 4.65meq/50ml D5AE 50 ML IV ONE (05:45)
[2017-12-13] MEDS: SUCRALFATE 1 GM/10 ML ORAL SUSP PO SCH ×4 (07:00→21:34)
[2017-12-13] MEDS ORDERED: SODIUM CHLORIDE LOCK 10 ML ONE (08:23)
[2017-12-13] MEDS ORDERED: LIDOCAINE VISCOUS 2% 15ML UD ONE (08:23)
[2017-12-13] MEDS ORDERED: diphenhdrAMINE HCL 50 MG/1 ML VL ONE (08:23)
[2017-12-13] MEDS ORDERED: MIDAZOLAM HCL 5 MG/ML-1ML VIAL ONE (08:23)
[2017-12-13] MEDS ORDERED: fentaNYL CITRATE 100 MCG/2 ML VL ONE (08:24)
[2017-12-13] MEDS ORDERED: SIMETHICONE 40 MG/0.6 ML ORAL DROP ONE (08:24)
[2017-12-13] MEDS: PANTOPRAZOLE 40 MG/10 ML VIAL IV SCH (09:36)
[2017-12-13] MEDS: NOREPINEPHRINE 8 MG/250ML KIT 250 ML IV SCH (10:30)
[2017-12-13] MEDS: LINEZOLID 600MG/300ML 300 ML IV SCH ×2 (11:22→23:22)
[2017-12-13] MEDS: PROPOFOL 100 ML IV SCH ×2 (11:36→16:12)
[2017-12-13 12:44] LABS: Hemoglobin 9.1 g/dL (12.2-16.2)
[2017-12-13 12:59] LABS: INR 1.15 (0.9-1.15); Partial Thromboplastin Time 28.9 sec (23.78-33.04); Prothrombin Time 12.2 sec (9.27-12.13)
[2017-12-13] MEDS: MIDAZOLAM DRIP 50 mg/50mL 50 ML IV SCH ×2 (13:01→18:27)
[2017-12-13 13:02] LABS: Albumin 1.3 g/dL (3.4-5.0); BUN/Creatinine Ratio 3.5; Bilirubin, Total 0.3 mg/dL (0.2-1.0); Calcium 6.5 mg/dL (8.5-10.1); Potassium 4.8 mmol/L (3.5-5.1); Total Protein 3.9 g/dL (6.4-8.2)
[2017-12-13 14:28] LABS: Fibrinogen 207.6 mg/dL (177-375)
[2017-12-13] MEDS: PANTOPRAZOLE 80 MG in SODIUM CHL 0.9% 60 ML IV SCH ×2 (16:11→23:22)
[2017-12-13] MEDS: GABAPENTIN 300 MG CAP PO SCH (21:34)
[2017-12-13] MEDS ORDERED: LINEZOLID 600MG/300ML 300 ML IV SCH (22:00)
[2017-12-14] VITALS (100 sets, daily range): BP systolic 99–158; BP diastolic 50–84
[2017-12-14] MEDS: SUCRALFATE 1 GM/10 ML ORAL SUSP PO SCH ×4 (05:00→21:07)
[2017-12-14] MEDS: ACCU-CHEK COMFORT CURVE STRIP VI SCH ×4 (05:22→23:13)
[2017-12-14] MEDS: InsuLIN REG 1unit/0.01ml Soln (100units/ml) SC SCH ×4 (05:22→23:13)
[2017-12-14 06:11] LABS: Potassium 4.1 mmol/L (3.5-5.1)
[2017-12-14 06:15] LABS: BUN/Creatinine Ratio 3.2; Calcium 6.5 mg/dL (8.5-10.1)
[2017-12-14 07:56] LABS: Basophils # (auto) 0.1 uL; Basophils % (auto) 1.1 % (0.0-2.0); Eosinophils # (auto) 0.6 uL; Hematocrit 26.2 % (36.0-46.0); Hemoglobin 8.8 g/dL (12.2-16.2); Lymphocytes # (auto) 1.4 uL; Lymphocytes % (auto) 17.9 % (10.0-50.0); Mean Corpuscular Hemoglobin 30.3 pg (28.0-32.0); Mean Corpuscular Hgb Conc. 33.5 g/dL (32.0-36.0); Mean Corpuscular Volume 90.4 fL (80.0-100.0); Monocytes # (auto) 0.4 uL; Monocytes % (auto) 5.4 % (0.0-12.0); Neutrophils # (auto) 5.1 uL; Neutrophils % (auto) 67.6 % (37.0-80.0); Nucleated Red Blood Cells % 0.1 %; Platelet Count (auto) 93 10^3/uL (140-450); Red Cell Distribution Width 14.7 % (11.8-14.3); White Blood Cell 7.6 10^3/uL (4.4-10.8)
[2017-12-14] MEDS: PROPOFOL 100 ML IV SCH ×2 (08:35→16:37)
[2017-12-14] MEDS: PANTOPRAZOLE 80 MG in SODIUM CHL 0.9% 60 ML IV SCH ×2 (09:43→20:00)
[2017-12-14] MEDS: NOREPINEPHRINE 8 MG/250ML KIT 250 ML IV SCH (10:30)
[2017-12-14] MEDS: LINEZOLID 600MG/300ML 300 ML IV SCH ×2 (10:48→23:13)
[2017-12-14] MEDS ORDERED: PROPOFOL 100 ML IV ONE (14:19)
[2017-12-14] MEDS: GABAPENTIN 300 MG CAP PO SCH (21:07)
[2017-12-15] VITALS (105 sets, daily range): BP systolic 82–154; BP diastolic 44–86
[2017-12-15] MEDS ORDERED: hydrALAZINE HCL 20 MG/ML VL IV PRN
[2017-12-15 04:19] LABS: Basophils # (auto) 0.1 uL; Basophils % (auto) 0.8 % (0.0-2.0); Eosinophils # (auto) 0.6 uL; Eosinophils % (auto) 6.7 % (0.0-7.0); Hematocrit 25.7 % (36.0-46.0); Hemoglobin 8.7 g/dL (12.2-16.2); Lymphocytes # (auto) 1.7 uL; Lymphocytes % (auto) 19.4 % (10.0-50.0); Mean Corpuscular Hemoglobin 30.7 pg (28.0-32.0); Mean Corpuscular Hgb Conc. 33.9 g/dL (32.0-36.0); Mean Corpuscular Volume 90.6 fL (80.0-100.0); Monocytes # (auto) 0.4 uL; Monocytes % (auto) 4.9 % (0.0-12.0); Neutrophils # (auto) 5.9 uL; Neutrophils % (auto) 68.2 % (37.0-80.0); Nucleated Red Blood Cells % 0.1 %; Platelet Count (auto) 98 10^3/uL (140-450); Red Blood Cells 2.84 10^6/uL (4.0-5.20); White Blood Cell 8.6 10^3/uL (4.4-10.8)
[2017-12-15 04:38] LABS: BUN/Creatinine Ratio 2.9; Calcium 6.6 mg/dL (8.5-10.1); Potassium 4.1 mmol/L (3.5-5.1)
[2017-12-15] MEDS: SUCRALFATE 1 GM/10 ML ORAL SUSP PO SCH ×4 (05:20→22:00)
[2017-12-15] MEDS: ACCU-CHEK COMFORT CURVE STRIP VI SCH ×4 (05:30→23:09)
[2017-12-15] MEDS: InsuLIN REG 1unit/0.01ml Soln (100units/ml) SC SCH ×4 (05:30→23:09)
[2017-12-15] MEDS: PANTOPRAZOLE 80 MG in SODIUM CHL 0.9% 60 ML IV SCH ×2 (06:09→15:10)
[2017-12-15] MEDS: LINEZOLID 600MG/300ML 300 ML IV SCH ×2 (10:25→23:08)
[2017-12-15] MEDS: NOREPINEPHRINE 8 MG/250ML KIT 250 ML IV SCH (10:30)
[2017-12-15] MEDS: PROPOFOL 100 ML IV SCH ×2 (10:38→14:07)
[2017-12-15] MEDS: GABAPENTIN 300 MG CAP PO SCH (22:00)
[2017-12-16] VITALS (106 sets, daily range): BP systolic 84–159; BP diastolic 49–76
[2017-12-16 02:40] LABS: Basophils # (auto) 0.1 uL; Basophils % (auto) 1.3 % (0.0-2.0); Eosinophils # (auto) 0.5 uL; Eosinophils % (auto) 7.6 % (0.0-7.0); Hematocrit 25.5 % (36.0-46.0); Hemoglobin 8.5 g/dL (12.2-16.2); Lymphocytes # (auto) 1.4 uL; Lymphocytes % (auto) 19.8 % (10.0-50.0); Mean Corpuscular Hemoglobin 30.4 pg (28.0-32.0); Mean Corpuscular Hgb Conc. 33.4 g/dL (32.0-36.0); Mean Corpuscular Volume 90.9 fL (80.0-100.0); Monocytes # (auto) 0.3 uL; Monocytes % (auto) 4.4 % (0.0-12.0); Neutrophils # (auto) 4.6 uL; Neutrophils % (auto) 66.9 % (37.0-80.0); Platelet Count (auto) 115 10^3/uL (140-450); Red Cell Distribution Width 14.8 % (11.8-14.3); White Blood Cell 6.9 10^3/uL (4.4-10.8)
[2017-12-16] MEDS: ACCU-CHEK COMFORT CURVE STRIP VI SCH ×2 (06:00→12:30)
[2017-12-16] MEDS ORDERED: EPOETIN ALFA 4,000 UNIT/ML VL IV SCH (06:00)
[2017-12-16] MEDS: InsuLIN REG 1unit/0.01ml Soln (100units/ml) SC SCH ×2 (06:00→12:45)
[2017-12-16] MEDS: PANTOPRAZOLE 80 MG in SODIUM CHL 0.9% 60 ML IV SCH ×2 (06:30→10:00)
[2017-12-16] MEDS: SUCRALFATE 1 GM/10 ML ORAL SUSP PO SCH ×4 (06:31→21:29)
[2017-12-16 08:07] LABS: BUN/Creatinine Ratio 3.2; Calcium 6.6 mg/dL (8.5-10.1); Potassium 4.4 mmol/L (3.5-5.1)
[2017-12-16] MEDS: NOREPINEPHRINE 8 MG/250ML KIT 250 ML IV SCH (10:30)
[2017-12-16] MEDS: PROPOFOL 100 ML IV SCH (13:09)
[2017-12-16] MEDS: LINEZOLID 600MG/300ML 300 ML IV SCH ×2 (16:30→22:39)
[2017-12-16] MEDS: GABAPENTIN 300 MG CAP PO SCH (21:30)
[2017-12-16] MEDS: PANTOPRAZOLE 40 MG/10 ML VIAL IV SCH (22:00)
[2017-12-17] VITALS (75 sets, daily range): BP systolic 115–163; BP diastolic 54–92
[2017-12-17] MEDS: PROPOFOL 100 ML IV SCH (03:00)
[2017-12-17 03:50] LABS: Basophils # (auto) 0.1 uL; Eosinophils # (auto) 0.4 uL; Hemoglobin 8.2 g/dL (12.2-16.2); Lymphocytes # (auto) 1.3 uL; Monocytes # (auto) 0.3 uL; Platelet Count (auto) 103 10^3/uL (140-450)
[2017-12-17 03:52] LABS: Basophils % (auto) 1.1 % (0.0-2.0); Eosinophils % (auto) 4.9 % (0.0-7.0); Hematocrit 24.2 % (36.0-46.0); Lymphocytes % (auto) 18.1 % (10.0-50.0); Mean Corpuscular Hemoglobin 30.9 pg (28.0-32.0); Mean Corpuscular Hgb Conc. 34.1 g/dL (32.0-36.0); Mean Corpuscular Volume 90.6 fL (80.0-100.0); Monocytes % (auto) 4.4 % (0.0-12.0); Neutrophils # (auto) 5.1 uL; Neutrophils % (auto) 71.5 % (37.0-80.0); Nucleated Red Blood Cells % 0.1 %; Red Blood Cells 2.67 10^6/uL (4.0-5.20); Red Cell Distribution Width 14.7 % (11.8-14.3); White Blood Cell 7.2 10^3/uL (4.4-10.8)
[2017-12-17 04:06] LABS: Albumin 1.4 g/dL (3.4-5.0); BUN/Creatinine Ratio 2.7; Calcium 6.4 mg/dL (8.5-10.1); Potassium 3.4 mmol/L (3.5-5.1)
[2017-12-17 04:08] LABS: Bilirubin, Total 0.4 mg/dL (0.2-1.0); Total Protein 4.8 g/dL (6.4-8.2)
[2017-12-17] MEDS: InsuLIN REG 1unit/0.01ml Soln (100units/ml) SC SCH ×5 (06:00→23:55)
[2017-12-17] MEDS: ACCU-CHEK COMFORT CURVE STRIP VI SCH ×5 (06:13→23:58)
[2017-12-17] MEDS: SUCRALFATE 1 GM/10 ML ORAL SUSP PO SCH ×4 (06:14→22:00)
[2017-12-17] MEDS: PANTOPRAZOLE 40 MG/10 ML VIAL IV SCH ×2 (10:00→22:16)
[2017-12-17] MEDS: NOREPINEPHRINE 8 MG/250ML KIT 250 ML IV SCH (10:30)
[2017-12-17] MEDS: LINEZOLID 600MG/300ML 300 ML IV SCH ×2 (10:56→22:16)
[2017-12-17] MEDS: GABAPENTIN 300 MG CAP PO SCH (22:00)
[2017-12-18] VITALS (91 sets, daily range): BP systolic 107–160; BP diastolic 62–96
[2017-12-18 03:59] LABS: Basophils # (auto) 0.1 uL; Basophils % (auto) 0.5 % (0.0-2.0); Eosinophils # (auto) 0.3 uL; Eosinophils % (auto) 2.3 % (0.0-7.0); Hematocrit 25.4 % (36.0-46.0); Hemoglobin 8.5 g/dL (12.2-16.2); Lymphocytes # (auto) 1.2 uL; Lymphocytes % (auto) 9.5 % (10.0-50.0); Mean Corpuscular Hemoglobin 30.5 pg (28.0-32.0); Mean Corpuscular Hgb Conc. 33.5 g/dL (32.0-36.0); Mean Corpuscular Volume 91.2 fL (80.0-100.0); Monocytes # (auto) 0.3 uL; Neutrophils % (auto) 85.7 % (37.0-80.0); Platelet Count (auto) 106 10^3/uL (140-450); Red Blood Cells 2.78 10^6/uL (4.0-5.20); Red Cell Distribution Width 15.6 % (11.8-14.3); White Blood Cell 12.8 10^3/uL (4.4-10.8)
[2017-12-18 04:13] LABS: Albumin 1.6 g/dL (3.4-5.0); Calcium 6.7 mg/dL (8.5-10.1); Potassium 3.5 mmol/L (3.5-5.1)
[2017-12-18 04:16] LABS: Bilirubin, Total 0.5 mg/dL (0.2-1.0); Total Protein 5.2 g/dL (6.4-8.2)
[2017-12-18] MEDS: SUCRALFATE 1 GM/10 ML ORAL SUSP PO SCH ×4 (06:00→22:00)
[2017-12-18] MEDS: InsuLIN REG 1unit/0.01ml Soln (100units/ml) SC SCH ×3 (06:00→17:44)
[2017-12-18] MEDS: ACCU-CHEK COMFORT CURVE STRIP VI SCH ×3 (06:02→17:44)
[2017-12-18] MEDS: PANTOPRAZOLE 40 MG/10 ML VIAL IV SCH ×2 (09:40→22:31)
[2017-12-18] MEDS ORDERED: ALBUMIN 25% 100 ML IV ONE (09:45)
[2017-12-18] MEDS ORDERED: diphenhdrAMINE HCL 50 MG/1 ML VL IV ONE (09:45)
[2017-12-18] MEDS ORDERED: EPOETIN ALFA 10,000 UNIT/1 ML VIAL IV ONE (09:45)
[2017-12-18] MEDS ORDERED: TPN PER PHARMACY 0 ML IV SCH (10:00)
[2017-12-18 10:28] LABS: Magnesium 2.2 mg/dL (1.6-2.6); Phosphorus 5.8 mg/dL (2.5-4.90); Pre Albumin 9.3 mg/dL (20.0-40.0)
[2017-12-18] MEDS: NOREPINEPHRINE 8 MG/250ML KIT 250 ML IV SCH (10:30)
[2017-12-18] MEDS: LINEZOLID 600MG/300ML 300 ML IV SCH ×2 (12:58→22:31)
[2017-12-18] MEDS ORDERED: CALCIUM GLUC 4.65meq/50ml D5AE 50 ML IV ONE (15:00)
[2017-12-18] MEDS: PROPOFOL 100 ML IV SCH (15:46)
[2017-12-18] MEDS ORDERED: TPN PER PHARMACY IV NR ×6 (20:00)
[2017-12-18] MEDS: GABAPENTIN 300 MG CAP PO SCH (22:00)
[2017-12-19] VITALS (29 sets, daily range): BP systolic 125–158; BP diastolic 69–84
[2017-12-19] MEDS: ACCU-CHEK COMFORT CURVE STRIP VI SCH ×4 (00:12→18:03)
[2017-12-19] MEDS: InsuLIN REG 1unit/0.01ml Soln (100units/ml) SC SCH ×4 (00:12→18:03)
[2017-12-19 06:27] LABS: Eosinophils # (auto) 0.3 uL; Hemoglobin 8.1 g/dL (12.2-16.2); Mean Corpuscular Volume 92.6 fL (80.0-100.0); Monocytes # (auto) 0.4 uL; Neutrophils # (auto) 7.8 uL; White Blood Cell 9.6 10^3/uL (4.4-10.8)
[2017-12-19 06:29] LABS: Basophils # (auto) 0.1 uL; Basophils % (auto) 0.5 % (0.0-2.0); Eosinophils % (auto) 2.9 % (0.0-7.0); Hematocrit 23.9 % (36.0-46.0); Lymphocytes # (auto) 1.1 uL; Lymphocytes % (auto) 11.8 % (10.0-50.0); Mean Corpuscular Hemoglobin 31.5 pg (28.0-32.0); Monocytes % (auto) 4.2 % (0.0-12.0); Neutrophils % (auto) 80.6 % (37.0-80.0); Nucleated Red Blood Cells % 0.1 %; Platelet Count (auto) 92 10^3/uL (140-450); Red Blood Cells 2.58 10^6/uL (4.0-5.20); Red Cell Distribution Width 15.7 % (11.8-14.3)
[2017-12-19] MEDS: SUCRALFATE 1 GM/10 ML ORAL SUSP PO SCH ×4 (06:41→21:20)
[2017-12-19 06:49] LABS: Bilirubin, Total 0.7 mg/dL (0.2-1.0); Total Protein 5.8 g/dL (6.4-8.2)
[2017-12-19 06:50] LABS: Magnesium 2.2 mg/dL (1.6-2.6)
[2017-12-19 07:11] LABS: Phosphorus 3.8 mg/dL (2.5-4.90)
[2017-12-19] MEDS: PANTOPRAZOLE 40 MG/10 ML VIAL IV SCH ×2 (09:20→21:20)
[2017-12-19] MEDS: NOREPINEPHRINE 8 MG/250ML KIT 250 ML IV SCH (10:30)
[2017-12-19] MEDS: LINEZOLID 600MG/300ML 300 ML IV SCH ×2 (10:56→23:00)
[2017-12-19] MEDS ORDERED: FUROSEMIDE 100 MG/10ML VIAL IV ONE (12:30)
[2017-12-19] MEDS: PROPOFOL 100 ML IV SCH (15:46)
[2017-12-19] MEDS ORDERED: TPN PER PHARMACY IV NR ×8 (20:00)
[2017-12-19] MEDS: GABAPENTIN 300 MG CAP PO SCH (21:20)
[2017-12-20] VITALS (63 sets, daily range): BP systolic 139–191; BP diastolic 63–106
[2017-12-20] MEDS: ACCU-CHEK COMFORT CURVE STRIP VI SCH ×4 (00:18→18:00)
[2017-12-20] MEDS: SUCRALFATE 1 GM/10 ML ORAL SUSP PO SCH ×4 (00:19→21:33)
[2017-12-20] MEDS: diphenhdrAMINE HCL 50 MG/1 ML VL IV PRN ×2 (00:20→11:11)
[2017-12-20 04:17] LABS: Eosinophils # (auto) 0.4 uL; Hemoglobin 8.3 g/dL (12.2-16.2); Lymphocytes # (auto) 1.5 uL; Monocytes # (auto) 0.4 uL; Monocytes % (auto) 3.5 % (0.0-12.0)
[2017-12-20 04:18] LABS: Basophils # (auto) 0 uL; Basophils % (auto) 0.4 % (0.0-2.0); Eosinophils % (auto) 3.6 % (0.0-7.0); Hematocrit 24.5 % (36.0-46.0); Mean Corpuscular Hemoglobin 31.5 pg (28.0-32.0); Mean Corpuscular Hgb Conc. 33.9 g/dL (32.0-36.0); Neutrophils # (auto) 7.9 uL; Neutrophils % (auto) 77.5 % (37.0-80.0); Platelet Count (auto) 84 10^3/uL (140-450); Red Blood Cells 2.63 10^6/uL (4.0-5.20); Red Cell Distribution Width 15.4 % (11.8-14.3); White Blood Cell 10.2 10^3/uL (4.4-10.8)
[2017-12-20 04:33] LABS: BUN/Creatinine Ratio 4.3; Bilirubin, Total 0.7 mg/dL (0.2-1.0); Calcium 7.5 mg/dL (8.5-10.1); Magnesium 2.6 mg/dL (1.6-2.6); Phosphorus 3.5 mg/dL (2.5-4.90); Potassium 4.1 mmol/L (3.5-5.1); Total Protein 5.9 g/dL (6.4-8.2)
[2017-12-20] MEDS: InsuLIN REG 1unit/0.01ml Soln (100units/ml) SC SCH ×4 (04:59→18:00)
[2017-12-20] MEDS: PANTOPRAZOLE 40 MG/10 ML VIAL IV SCH ×2 (09:37→21:33)
[2017-12-20] MEDS: NOREPINEPHRINE 8 MG/250ML KIT 250 ML IV SCH (10:30)
[2017-12-20] MEDS ORDERED: EPOETIN ALFA 10,000 UNIT/1 ML VIAL IV ONE (11:00)
[2017-12-20] MEDS ORDERED: ALBUMIN 25% 100 ML IV ONE (11:00)
[2017-12-20] MEDS: LINEZOLID 600MG/300ML 300 ML IV SCH ×2 (14:23→23:07)
[2017-12-20] MEDS: PROPOFOL 100 ML IV SCH (15:46)
[2017-12-20] MEDS ORDERED: LABETALOL HCL 5 MG/ML ML 20ML VIAL IV ONE (19:30)
[2017-12-20] MEDS: ONDANSETRON HCL 4 MG/2 ML VIAL IV PRN (19:49)
[2017-12-20] MEDS ORDERED: TPN PER PHARMACY IV NR ×8 (20:00)
[2017-12-20] MEDS: GABAPENTIN 300 MG CAP PO SCH (21:33)
[2017-12-20] MEDS: oxyCODONE ER 10 MG TAB PO PRN (22:10)
[2017-12-21] VITALS (43 sets, daily range): BP systolic 128–200; BP diastolic 69–103
[2017-12-21] MEDS: LABETALOL HCL 5 MG/ML ML 20ML VIAL IV PRN ×3 (00:05→07:11)
[2017-12-21] MEDS: diphenhdrAMINE HCL 50 MG/1 ML VL IV PRN ×2 (01:04→06:39)
[2017-12-21 04:29] LABS: Albumin 1.8 g/dL (3.4-5.0); BUN/Creatinine Ratio 6.2; Bilirubin, Total 0.4 mg/dL (0.2-1.0); Calcium 7.3 mg/dL (8.5-10.1); Magnesium 2.3 mg/dL (1.6-2.6); Phosphorus 2.1 mg/dL (2.5-4.90); Potassium 4.2 mmol/L (3.5-5.1); Total Protein 5.8 g/dL (6.4-8.2)
[2017-12-21] MEDS: InsuLIN REG 1unit/0.01ml Soln (100units/ml) SC SCH ×5 (06:00→23:43)
[2017-12-21] MEDS: ACCU-CHEK COMFORT CURVE STRIP VI SCH ×5 (06:14→23:43)
[2017-12-21] MEDS: SUCRALFATE 1 GM/10 ML ORAL SUSP PO SCH ×4 (06:47→22:47)
[2017-12-21] MEDS ORDERED: METOPROLOL TARTRATE 1MG/1ML-5ML VIAL IV ONE (08:15)
[2017-12-21] MEDS ORDERED: METOPROLOL TARTRATE 50 MG TAB PO ONE (09:30)
[2017-12-21] MEDS ORDERED: SODIUM PHOSPHATES 20 MEQ in SODIUM CHL 0.9% 100 ML IV ONE (10:30)
[2017-12-21] MEDS: LINEZOLID 600MG/300ML 300 ML IV SCH ×2 (11:00→23:43)
[2017-12-21] MEDS: PANTOPRAZOLE 40 MG/10 ML VIAL IV SCH ×2 (11:57→22:47)
[2017-12-21 12:10] LABS: Hematocrit 23.9 % (36.0-46.0); Hemoglobin 7.9 g/dL (12.2-16.2)
[2017-12-21] MEDS: DEXTROSE (50%) 50ML SYRG IV SCH ×2 (12:15→18:49)
[2017-12-21] MEDS ORDERED: TPN PER PHARMACY IV NR ×8 (20:00)
[2017-12-21] MEDS: GABAPENTIN 300 MG CAP PO SCH (22:48)
[2017-12-21] MEDS: METOPROLOL TARTRATE 50 MG TAB PO SCH (22:48)
[2017-12-22] MEDS: ONDANSETRON HCL 4 MG/2 ML VIAL IV PRN (04:31)
[2017-12-22 04:40] VITALS: BP 159/77
[2017-12-22] MEDS: InsuLIN REG 1unit/0.01ml Soln (100units/ml) SC SCH ×3 (05:16→18:00)
[2017-12-22] MEDS: ACCU-CHEK COMFORT CURVE STRIP VI SCH ×3 (05:16→18:00)
[2017-12-22] MEDS: SUCRALFATE 1 GM/10 ML ORAL SUSP PO SCH ×4 (06:33→22:07)
[2017-12-22 07:12] LABS: Albumin 1.8 g/dL (3.4-5.0); BUN/Creatinine Ratio 9.1; Bilirubin, Total 0.4 mg/dL (0.2-1.0); Calcium 7.3 mg/dL (8.5-10.1); Magnesium 2.4 mg/dL (1.6-2.6); Phosphorus 2.6 mg/dL (2.5-4.90); Potassium 4.3 mmol/L (3.5-5.1); Total Protein 5.8 g/dL (6.4-8.2)
[2017-12-22 08:33] VITALS: BP 160/75
[2017-12-22] MEDS: METOPROLOL TARTRATE 50 MG TAB PO SCH ×2 (09:41→22:07)
[2017-12-22] MEDS: PANTOPRAZOLE 40 MG/10 ML VIAL IV SCH ×2 (09:41→22:07)
[2017-12-22] MEDS ORDERED: D5W/SOD CHLO 0.9% 1,000 ML IV ONE (10:15)
[2017-12-22] MEDS: LINEZOLID 600MG/300ML 300 ML IV SCH (11:18)
[2017-12-22 12:21] VITALS: BP 137/67
[2017-12-22 16:39] VITALS: BP 157/70
[2017-12-22] MEDS: FERROUS SULFATE 325 MG TAB PO SCH (17:21)
[2017-12-22] MEDS: LABETALOL HCL 5 MG/ML ML 20ML VIAL IV PRN (17:48)
[2017-12-22] MEDS ORDERED: TPN PER PHARMACY IV NR ×9 (20:00)
[2017-12-22] MEDS: oxyCODONE ER 10 MG TAB PO PRN (20:13)
[2017-12-22 21:39] VITALS: BP 148/67
[2017-12-22] MEDS: GABAPENTIN 300 MG CAP PO SCH (22:07)
[2017-12-23] VITALS (12 sets, daily range): BP systolic 130–170; BP diastolic 62–84
[2017-12-23] MEDS: ACCU-CHEK COMFORT CURVE STRIP VI SCH ×5 (00:17→23:36)
[2017-12-23] MEDS: LINEZOLID 600MG/300ML 300 ML IV SCH ×3 (00:17→23:29)
[2017-12-23] MEDS: InsuLIN REG 1unit/0.01ml Soln (100units/ml) SC SCH ×5 (05:57→23:36)
[2017-12-23] MEDS: SUCRALFATE 1 GM/10 ML ORAL SUSP PO SCH ×4 (06:34→20:35)
[2017-12-23 06:55] LABS: Albumin 1.9 g/dL (3.4-5.0); BUN/Creatinine Ratio 11.1; Bilirubin, Total 0.4 mg/dL (0.2-1.0); Calcium 7.4 mg/dL (8.5-10.1); Magnesium 2.4 mg/dL (1.6-2.6); Phosphorus 2.7 mg/dL (2.5-4.90); Potassium 4.7 mmol/L (3.5-5.1); Total Protein 6.1 g/dL (6.4-8.2)
[2017-12-23] MEDS: FERROUS SULFATE 325 MG TAB PO SCH ×2 (09:49→18:44)
[2017-12-23] MEDS: METOPROLOL TARTRATE 50 MG TAB PO SCH ×2 (10:00→22:00)
[2017-12-23] MEDS ORDERED: HYOSCYAMINE SULF 0.125 MG TAB PO PRN (10:15)
[2017-12-23 11:01] LABS: Hematocrit 21.2 % (36.0-46.0)
[2017-12-23] MEDS ORDERED: EPOETIN ALFA 10,000 UNIT/1 ML VIAL IV ONE (13:30)
[2017-12-23] MEDS ORDERED: SODIUM CHL 0.9% 1000 ML BAG XX ONE (13:30)
[2017-12-23] MEDS ORDERED: diphenhdrAMINE HCL 50 MG/1 ML VL IV ONE (14:30)
[2017-12-23] MEDS: PANTOPRAZOLE 40 MG/10 ML VIAL IV SCH ×2 (18:43→20:35)
[2017-12-23] MEDS ORDERED: TPN PER PHARMACY IV NR ×9 (20:00)
[2017-12-23] MEDS: ONDANSETRON HCL 4 MG/2 ML VIAL IV PRN (20:35)
[2017-12-23] MEDS: GABAPENTIN 300 MG CAP PO SCH (20:35)
[2017-12-23] MEDS: oxyCODONE ER 10 MG TAB PO PRN (20:35)
[2017-12-24 05:00] VITALS: BP 140/64
[2017-12-24] MEDS: InsuLIN REG 1unit/0.01ml Soln (100units/ml) SC SCH ×2 (05:05→11:31)
[2017-12-24] MEDS: SUCRALFATE 1 GM/10 ML ORAL SUSP PO SCH ×3 (05:06→17:00)
[2017-12-24] MEDS: ACCU-CHEK COMFORT CURVE STRIP VI SCH ×2 (05:06→11:32)
[2017-12-24 06:06] LABS: Albumin 1.9 g/dL (3.4-5.0); BUN/Creatinine Ratio 11.7; Bilirubin, Total 0.9 mg/dL (0.2-1.0); Magnesium 2.1 mg/dL (1.6-2.6); Phosphorus 1.8 mg/dL (2.5-4.90); Potassium 3.6 mmol/L (3.5-5.1); Total Protein 6.1 g/dL (6.4-8.2)
[2017-12-24 07:39] VITALS: BP 153/69
[2017-12-24 09:28] LABS: Hematocrit 26.4 % (36.0-46.0)
[2017-12-24] MEDS: PANTOPRAZOLE 40 MG/10 ML VIAL IV SCH (10:23)
[2017-12-24] MEDS: FERROUS SULFATE 325 MG TAB PO SCH (10:24)
[2017-12-24] MEDS: METOPROLOL TARTRATE 50 MG TAB PO SCH (10:24)
[2017-12-24] MEDS ORDERED: SODIUM PHOSP 20MEQ(15MMOL) IN NS 100 ML IV ONE (10:30)
[2017-12-24] MEDS: oxyCODONE ER 10 MG TAB PO PRN (10:31)
[2017-12-24] MEDS: LINEZOLID 600MG/300ML 300 ML IV SCH (11:25)
[2017-12-24 12:12] VITALS: BP 139/76
[2017-12-24 14:42] VITALS: BP 139/76
[2017-12-24 16:31] VITALS: BP 164/69
[2017-12-24] MEDS ORDERED: CALCIUM GLUC 4.65meq/50ml D5AE 50 ML IV ONE (17:00)
[2017-12-24] MEDS ORDERED: TPN PER PHARMACY IV NR ×10 (20:00)
== END 2017-12-24 17:49 | DRG 207 ==
LOC: EDBD 20:46 → ER 20:50 → TELE 20:51 → ICU WEST 12-06 18:14 → EAST 12-10 17:06 → TELE-EAST 12-12 00:14 → ICU CENTRL 12-12 10:08 → DOU IN ICU 12-12 11:35 → ICU WEST 12-14 17:00 → TELE-EAST 12-21 16:52 → EAST 12-22 04:24
PROVIDERS: ADMIT Nurse Practitioner; ATTEND Family Medicine
PROC: 30233L1 Transfusion of Nonautologous Fresh Plasma into Peripheral Vein, Percutaneous Approach (ICD-10-PCS; 2017-12-06)
PROC: 30233N1 Transfusion of Nonautologous Red Blood Cells into Peripheral Vein, Percutaneous Approach (ICD-10-PCS; 2017-12-06)
PROC: 30233R1 Transfusion of Nonautologous Platelets into Peripheral Vein, Percutaneous Approach (ICD-10-PCS; 2017-12-06)
PROC: 30233K1 Transfusion of Nonautologous Frozen Plasma into Peripheral Vein, Percutaneous Approach (ICD-10-PCS; 2017-12-06)
PROC: 5A1D70Z Performance of Urinary Filtration, Intermittent, Less than 6 Hours Per Day (ICD-10-PCS; 2017-12-06)
PROC: 0DJ08ZZ Inspection of Upper Intestinal Tract, Via Natural or Artificial Opening Endoscopic (ICD-10-PCS; principal; 2017-12-06 06:00)
PROC: 0BH17EZ Insertion of Endotracheal Airway into Trachea, Via Natural or Artificial Opening (ICD-10-PCS; 2017-12-07)
PROC: 5A1955Z Respiratory Ventilation, Greater than 96 Consecutive Hours (ICD-10-PCS; 2017-12-07)
PROC: 5A1D70Z Performance of Urinary Filtration, Intermittent, Less than 6 Hours Per Day (ICD-10-PCS; 2017-12-09)
PROC: 5A1D70Z Performance of Urinary Filtration, Intermittent, Less than 6 Hours Per Day (ICD-10-PCS; 2017-12-11)
PROC: 0DJ08ZZ Inspection of Upper Intestinal Tract, Via Natural or Artificial Opening Endoscopic (ICD-10-PCS; 2017-12-12)
PROC: 0DJ08ZZ Inspection of Upper Intestinal Tract, Via Natural or Artificial Opening Endoscopic (ICD-10-PCS; 2017-12-12)
PROC: 5A1D70Z Performance of Urinary Filtration, Intermittent, Less than 6 Hours Per Day (ICD-10-PCS; 2017-12-13)
PROC: 0W3P8ZZ Control Bleeding in Gastrointestinal Tract, Via Natural or Artificial Opening Endoscopic (ICD-10-PCS; 2017-12-13)
PROC: 5A1D70Z Performance of Urinary Filtration, Intermittent, Less than 6 Hours Per Day (ICD-10-PCS; 2017-12-16)
PROC: 5A1D70Z Performance of Urinary Filtration, Intermittent, Less than 6 Hours Per Day (ICD-10-PCS; 2017-12-18)
PROC: 5A1D70Z Performance of Urinary Filtration, Intermittent, Less than 6 Hours Per Day (ICD-10-PCS; 2017-12-20)
PROC: 5A1D70Z Performance of Urinary Filtration, Intermittent, Less than 6 Hours Per Day (ICD-10-PCS; 2017-12-23)
DX: J96.00 Acute respiratory failure, unspecified whether with hypoxia or hypercapnia (principal); K26.4 Chronic or unspecified duodenal ulcer with hemorrhage; E43 Unspecified severe protein-calorie malnutrition; R57.8 Other shock; A41.9 Sepsis, unspecified organism; N18.6 End stage renal disease; K25.4 Chronic or unspecified gastric ulcer with hemorrhage; K86.1 Other chronic pancreatitis; I13.2 Hypertensive heart and chronic kidney disease with heart failure and with stage 5 chronic kidney disease, or end stage renal disease; N39.0 Urinary tract infection, site not specified; E11.22 Type 2 diabetes mellitus with diabetic chronic kidney disease; E87.5 Hyperkalemia; E83.51 Hypocalcemia; D50.0 Iron deficiency anemia secondary to blood loss (chronic); Z99.2 Dependence on renal dialysis; Z88.5 Allergy status to narcotic agent; Z68.28 Body mass index [BMI] 28.0-28.9, adult; B95.2 Enterococcus as the cause of diseases classified elsewhere; E11.649 Type 2 diabetes mellitus with hypoglycemia without coma; E87.6 Hypokalemia; I50.9 Heart failure, unspecified; Z82.49 Family history of ischemic heart disease and other diseases of the circulatory system; Z83.3 Family history of diabetes mellitus; Z90.49 Acquired absence of other specified parts of digestive tract; Z16.21 Resistance to vancomycin
CPT/HCPCS: 36415; 36430; 36556; 36600; 43235; 51702; 71045; 74176; 76604; 80048; 80053; 81001; 82040; 82270; 82805; 82962; 83615; 83735; 84100; 84132; 84478; 84702; 85014; 85018; 85025; 85379; 85384; 85610; 85730; 86677; 86850; 86900; 86901; 86920; 87040; 87070; 87077; 87081; 87086; 87088; 87186; 87205; 90935; 92610; 93005; 94002; 94003; 94640; 96372; 96374; 96375; 97110; 97163; 97530; 99291; A4565; A6257; C9113; J0330; J0610; J0885; J1815; J2250; J2405; J2704; J3430; J7042; J7060; J7131; P9047; Q4081

== ENCOUNTER 2017-12-28 07:32 | Inpatient (IN) | payer MEDICARE, MEDICAID ==
[~2017-12-28] VITALS: Ht 160 cm; Wt 62.2 kg
[~2017-12-28 07:32] MED LIST: CLIN1CAP3 PO; DIAZ5TAB3 PO; GABA600T PO; OXY5T PO
[2017-12-28] MEDS ORDERED: SODIUM CHLORIDE 0.9% 1,000 ML IV ONE ×2 (08:17)
[2017-12-28 08:22] LABS: Basophils # (auto) 0.1 uL; Basophils % (auto) 0.6 % (0.0-2.0); Eosinophils # (auto) 0 uL; Eosinophils % (auto) 0.3 % (0.0-7.0); Hematocrit 26.6 % (36.0-46.0); Hemoglobin 8.9 g/dL (12.2-16.2); Lymphocytes # (auto) 2.1 uL; Lymphocytes % (auto) 22.5 % (10.0-50.0); Mean Corpuscular Hemoglobin 29.6 pg (28.0-32.0); Mean Corpuscular Hgb Conc. 33.5 g/dL (32.0-36.0); Mean Corpuscular Volume 88.3 fL (80.0-100.0); Monocytes # (auto) 1.4 uL; Monocytes % (auto) 14.6 % (0.0-12.0); Neutrophils # (auto) 5.8 uL; Platelet Count (auto) 113 10^3/uL (140-450); Red Blood Cells 3.02 10^6/uL (4.0-5.20); Red Cell Distribution Width 14.9 % (11.8-14.3); White Blood Cell 9.3 10^3/uL (4.4-10.8)
[2017-12-28 08:38] LABS: Albumin 2.2 g/dL (3.4-5.0); BUN/Creatinine Ratio 7.8; Calcium 7.8 mg/dL (8.5-10.1); Magnesium 2.1 mg/dL (1.6-2.6); Potassium 4.2 mmol/L (3.5-5.1)
[2017-12-28 08:39] LABS: Urine Bacteria FEW /hpf (None Seen); Urine Blood TRACE /uL (Negative); Urine Specific Gravity 1.006 (1.001-1.035); Urine WBC 1 /hpf (0 - 5)
[2017-12-28 08:40] LABS: Lactic Acid w/Reflex 2.2 mmol/L (0.4-2.0)
[2017-12-28 08:42] LABS: Bilirubin, Total 0.6 mg/dL (0.2-1.0); Total Protein 6.9 g/dL (6.4-8.2)
[2017-12-28] MEDS ORDERED: ACETAMINOPHEN 650 MG RECT SUPP PR ONE (10:15)
[2017-12-28] MEDS ORDERED: PIPERACILLIN-TAZOB 3.375GM 100 ML IV ONE (10:15)
[2017-12-28] MEDS ORDERED: metroNIDAZOLE 500MG/100ML 100 ML IV ONE (10:15)
[2017-12-28] MEDS ORDERED: DEXTROSE (50%) 50ML SYRG IV PRN (11:45)
[2017-12-28] MEDS ORDERED: PIPERACILLIN-TAZOB 0.75 GM in D5W 5% 50 ML IV SCH (12:15)
[2017-12-28] MEDS: FAMOTIDINE (10MG/ML) 2ML VL IV SCH (12:22)
[2017-12-28] MEDS: FLUCONAZOLE 200MG/100ML 100 ML IV SCH (14:11)
[2017-12-28] MEDS: metroNIDAZOLE 500MG/100ML 100 ML IV SCH ×2 (14:13→21:19)
[2017-12-28 14:49] VITALS: BP 158/87
[2017-12-28] MEDS: InsuLIN REG 1unit/0.01ml Soln (100units/ml) SC SCH ×2 (17:00→21:20)
[2017-12-28] MEDS: ACCU-CHEK COMFORT CURVE STRIP VI SCH ×2 (17:00→21:20)
[2017-12-28 17:39] VITALS: BP 152/81
[2017-12-28] MEDS ORDERED: PIPERACILLIN-TAZOB 2.25GM 50 ML IV SCH (18:00)
[2017-12-28] MEDS: PIPERACILLIN-TAZOB 0.75 GM in D5W 5% 50 ML IV SCH (21:00)
[2017-12-28 22:00] VITALS: BP 158/76
[2017-12-28] MEDS ORDERED: LORazepam 2MG/ML-1ML VIAL IV PRN (22:00)
[2017-12-29 05:27] VITALS: BP 141/73
[2017-12-29] MEDS: metroNIDAZOLE 500MG/100ML 100 ML IV SCH ×3 (05:40→22:19)
[2017-12-29] MEDS: InsuLIN REG 1unit/0.01ml Soln (100units/ml) SC SCH ×4 (06:06→22:00)
[2017-12-29] MEDS: ACCU-CHEK COMFORT CURVE STRIP VI SCH ×4 (06:06→22:19)
[2017-12-29] MEDS ORDERED: EPOETIN ALFA 10,000 UNIT/1 ML VIAL IV ONE (07:30)
[2017-12-29] MEDS ORDERED: PIPERACILLIN-TAZOB 2.25GM 50 ML IV SCH (08:00)
[2017-12-29 08:49] VITALS: BP 163/82
[2017-12-29] MEDS: FAMOTIDINE (10MG/ML) 2ML VL IV SCH (10:33)
[2017-12-29] MEDS: FLUCONAZOLE 200MG/100ML 100 ML IV SCH (10:34)
[2017-12-29 10:45] LABS: Basophils # (auto) 0 uL; Basophils % (auto) 0.5 % (0.0-2.0); Eosinophils # (auto) 0.1 uL; Eosinophils % (auto) 1.5 % (0.0-7.0); Hematocrit 25.1 % (36.0-46.0); Hemoglobin 8.5 g/dL (12.2-16.2); Lymphocytes # (auto) 1.4 uL; Mean Corpuscular Hemoglobin 29.9 pg (28.0-32.0); Mean Corpuscular Hgb Conc. 33.7 g/dL (32.0-36.0); Mean Corpuscular Volume 88.7 fL (80.0-100.0); Monocytes # (auto) 0.8 uL; Monocytes % (auto) 14.3 % (0.0-12.0); Neutrophils # (auto) 3.3 uL; Neutrophils % (auto) 58.7 % (37.0-80.0); Platelet Count (auto) 68 10^3/uL (140-450); Red Blood Cells 2.83 10^6/uL (4.0-5.20); White Blood Cell 5.7 10^3/uL (4.4-10.8)
[2017-12-29 11:34] LABS: Albumin 2.2 g/dL (3.4-5.0); BUN/Creatinine Ratio 5.2; Bilirubin, Total 0.5 mg/dL (0.2-1.0); Calcium 7.2 mg/dL (8.5-10.1); Potassium 3.1 mmol/L (3.5-5.1); Total Protein 6.6 g/dL (6.4-8.2)
[2017-12-29 13:33] VITALS: BP 148/79
[2017-12-29 17:35] VITALS: BP 157/75
[2017-12-29] MEDS: PIPERACILLIN-TAZOB 0.75 GM in D5W 5% 50 ML IV SCH (21:00)
[2017-12-29 22:00] VITALS: BP 141/68
[2017-12-30] MEDS: metroNIDAZOLE 500MG/100ML 100 ML IV SCH ×3 (05:31→23:15)
[2017-12-30 05:54] VITALS: BP 137/64
[2017-12-30] MEDS: ACCU-CHEK COMFORT CURVE STRIP VI SCH ×4 (06:07→21:45)
[2017-12-30] MEDS: InsuLIN REG 1unit/0.01ml Soln (100units/ml) SC SCH ×4 (06:07→21:45)
[2017-12-30 07:06] LABS: Basophils # (auto) 0 uL; Eosinophils # (auto) 0.2 uL; Lymphocytes # (auto) 1.8 uL
[2017-12-30 07:10] LABS: Basophils % (auto) 0.5 % (0.0-2.0); Eosinophils % (auto) 3.2 % (0.0-7.0); Hematocrit 23.5 % (36.0-46.0); Lymphocytes % (auto) 30.8 % (10.0-50.0); Mean Corpuscular Hgb Conc. 34.1 g/dL (32.0-36.0); Monocytes % (auto) 16.9 % (0.0-12.0); Neutrophils # (auto) 2.8 uL; Neutrophils % (auto) 48.6 % (37.0-80.0); Nucleated Red Blood Cells % 0.1 %; Platelet Count (auto) 81 10^3/uL (140-450); Red Blood Cells 2.67 10^6/uL (4.0-5.20); Red Cell Distribution Width 15.1 % (11.8-14.3); White Blood Cell 5.8 10^3/uL (4.4-10.8)
[2017-12-30 07:58] LABS: Albumin 2.2 g/dL (3.4-5.0); BUN/Creatinine Ratio 4.5; Bilirubin, Total 0.4 mg/dL (0.2-1.0); Calcium 7.5 mg/dL (8.5-10.1); Total Protein 6.9 g/dL (6.4-8.2)
[2017-12-30 08:00] VITALS: BP 183/90
[2017-12-30 08:12] LABS: Potassium 2.8 mmol/L (3.5-5.1)
[2017-12-30] MEDS: FAMOTIDINE (10MG/ML) 2ML VL IV SCH (09:58)
[2017-12-30] MEDS: FLUCONAZOLE 200MG/100ML 100 ML IV SCH (09:58)
[2017-12-30 12:00] VITALS: BP 186/88
[2017-12-30] MEDS ORDERED: POTASSIUM EFFERVESENT TAB 25 MEQ PO ONE (12:45)
[2017-12-30] MEDS: cloNIDine HCL 0.1 MG TAB PO SCH ×2 (12:45→18:41)
[2017-12-30] MEDS ORDERED: cloNIDine 0.3 mg/24hr 7DAY PATCH TD SCH (12:45)
[2017-12-30] MEDS ORDERED: NIFEdipine ER 30 MG TAB PO ONE (12:45)
[2017-12-30] MEDS ORDERED: diphenhdrAMINE HCL 50 MG/1 ML VL IV ONE (14:00)
[2017-12-30] MEDS ORDERED: EPOETIN ALFA 10,000 UNIT/1 ML VIAL IV ONE (14:00)
[2017-12-30] MEDS ORDERED: SODIUM CHL 0.9% 1000 ML BAG XX ONE (14:00)
[2017-12-30 17:00] VITALS: BP 160/88
[2017-12-30] MEDS: PIPERACILLIN-TAZOB 0.75 GM in D5W 5% 50 ML IV SCH (21:28)
[2017-12-30 21:30] VITALS: BP 154/68
[2017-12-30] MEDS: NIFEdipine ER 30 MG TAB PO SCH (21:45)
[2017-12-30 23:23] VITALS: BP 161/81
[2017-12-31] MEDS: cloNIDine HCL 0.1 MG TAB PO SCH ×4 (00:42→18:20)
[2017-12-31 05:00] VITALS: BP 126/54
[2017-12-31] MEDS: ACCU-CHEK COMFORT CURVE STRIP VI SCH ×4 (05:47→21:40)
[2017-12-31] MEDS: InsuLIN REG 1unit/0.01ml Soln (100units/ml) SC SCH ×4 (05:47→21:40)
[2017-12-31] MEDS: metroNIDAZOLE 500MG/100ML 100 ML IV SCH ×3 (05:47→21:39)
[2017-12-31] MEDS: Glucerna Carbsteady SHAKE Vanilla 8oz PO SCH ×2 (08:10→18:00)
[2017-12-31 08:57] VITALS: BP 107/57
[2017-12-31] MEDS: NIFEdipine ER 30 MG TAB PO SCH ×2 (10:00→21:39)
[2017-12-31] MEDS: FAMOTIDINE (10MG/ML) 2ML VL IV SCH (10:03)
[2017-12-31] MEDS: FLUCONAZOLE 200MG/100ML 100 ML IV SCH (10:04)
[2017-12-31 12:51] VITALS: BP 96/49
[2017-12-31] MEDS: OXYCODONE W/ ACETAMINOPHEN 5/325MG TABLET PO PRN ×2 (15:11→21:39)
[2017-12-31 17:00] VITALS: BP 95/49
[2017-12-31 20:00] VITALS: BP 112/93
[2017-12-31] MEDS: PIPERACILLIN-TAZOB 0.75 GM in D5W 5% 50 ML IV SCH (21:00)
[2018-01-01] MEDS: cloNIDine HCL 0.1 MG TAB PO SCH ×4 (00:45→18:05)
[2018-01-01 05:00] VITALS: BP 105/89
[2018-01-01] MEDS: metroNIDAZOLE 500MG/100ML 100 ML IV SCH ×2 (05:58→14:00)
[2018-01-01] MEDS: InsuLIN REG 1unit/0.01ml Soln (100units/ml) SC SCH ×3 (06:23→17:00)
[2018-01-01] MEDS: ACCU-CHEK COMFORT CURVE STRIP VI SCH ×3 (06:23→17:00)
[2018-01-01] MEDS ORDERED: ACETAMINOPHEN 325 MG TAB PO PRN (07:15)
[2018-01-01 08:28] VITALS: BP 116/65
[2018-01-01] MEDS ORDERED: diphenhdrAMINE HCL 50 MG/1 ML VL IV ONE (09:00)
[2018-01-01] MEDS ORDERED: LIDOCAINE HCL 5 % TOP OINT 35 GM TOP ONE (09:00)
[2018-01-01] MEDS ORDERED: SODIUM CHL 0.9% 1000 ML BAG XX ONE (09:00)
[2018-01-01] MEDS ORDERED: EPOETIN ALFA 10,000 UNIT/1 ML VIAL IV ONE (09:00)
[2018-01-01] MEDS: Glucerna Carbsteady SHAKE Vanilla 8oz PO SCH ×2 (09:20→18:05)
[2018-01-01 11:59] VITALS: BP 152/73
[2018-01-01] MEDS: FAMOTIDINE (10MG/ML) 2ML VL IV SCH (13:14)
[2018-01-01] MEDS: NIFEdipine ER 30 MG TAB PO SCH (13:14)
[2018-01-01] MEDS: FLUCONAZOLE 200MG/100ML 100 ML IV SCH (13:14)
[2018-01-01 16:50] VITALS: BP 133/82
[2018-01-01] MEDS: PIPERACILLIN-TAZOB 0.75 GM in D5W 5% 50 ML IV SCH (18:06)
== END 2018-01-01 18:45 | DRG 871 ==
LOC: EDBD 07:32 → ER 07:33 → TELE 07:34 → TELE-EAST 13:45
PROVIDERS: ADMIT Internal Medicine; ATTEND Specialist
PROC: 5A1D70Z Performance of Urinary Filtration, Intermittent, Less than 6 Hours Per Day (ICD-10-PCS; principal; 2017-12-28)
PROC: 5A1D70Z Performance of Urinary Filtration, Intermittent, Less than 6 Hours Per Day (ICD-10-PCS; 2017-12-30)
PROC: 5A1D70Z Performance of Urinary Filtration, Intermittent, Less than 6 Hours Per Day (ICD-10-PCS; 2018-01-01)
DX: A41.9 Sepsis, unspecified organism (principal); G93.41 Metabolic encephalopathy; N18.6 End stage renal disease; I21.4 Non-ST elevation (NSTEMI) myocardial infarction; E43 Unspecified severe protein-calorie malnutrition; I13.2 Hypertensive heart and chronic kidney disease with heart failure and with stage 5 chronic kidney disease, or end stage renal disease; J98.11 Atelectasis; N39.0 Urinary tract infection, site not specified; K86.1 Other chronic pancreatitis; Z99.2 Dependence on renal dialysis; I50.9 Heart failure, unspecified; E11.22 Type 2 diabetes mellitus with diabetic chronic kidney disease; D50.0 Iron deficiency anemia secondary to blood loss (chronic); E11.649 Type 2 diabetes mellitus with hypoglycemia without coma; E87.5 Hyperkalemia; Z79.4 Long term (current) use of insulin; Z82.49 Family history of ischemic heart disease and other diseases of the circulatory system; Z83.3 Family history of diabetes mellitus; Z87.11 Personal history of peptic ulcer disease; Z87.891 Personal history of nicotine dependence; Z68.24 Body mass index [BMI] 24.0-24.9, adult; Z88.1 Allergy status to other antibiotic agents
CPT/HCPCS: 36415; 70450; 70551; 71045; 74176; 80053; 80307; 81001; 81025; 82140; 82962; 83605; 83735; 84132; 84484; 85025; 87040; 87081; 87493; 90935; 93005; 94761; 95819; 96365; 96375; 97163; J0885; J1450; J2543; J3490; J7060